=== PATIENT | female | born 2000 | race Caucasian/White ===

== ENCOUNTER 2023-08-05 23:43 | Emergency (ER) | payer BC, SELFPAY ==
--- NOTE | ~2023-08-05 | US_ITS ---
EXAMINATION: US OB <=14 wk fetus w TV DATE: 08/06/2023 01:35 INDICATION: Pelvic pain and vaginal bleeding during first trimester TECHNIQUE: Real-time pelvic transabdominal and transvaginal ultrasound was performed. COMPARISON: None. FINDINGS: The uterus measures 8.9 x 4.4 x 5.6 cm. There is an intrauterine gestational sac. No cardiac activity is identified. The crown rump length measures 3 mm, which correlates with an e stimated gestational age of 6 weeks and 0 day(s) (+/-) 4 day(s). The right ovary measures 1.6 x 3.5 x 2.2 cm. The left ovary measures 2.4 x 4 x 2.0 cm. There is brooke l vascular flow in the ovaries. There is no free fluid in the pelvis. IMPRESSION: 1. Intrauterine with an estimated gestational age of 6 weeks and 0 day(s) (+/-) 4 day(s) an d an estimated delivery date of 03/31/2024. No cardiac activity detected which may be due to ear ly . Continued follow-up is recommended. Reviewed, dictated and finalized at location F. IMPRESSION: 1. Intrauterine with an estimated gestational age of 6 weeks and 0 da y(s) (+/-) 4 day(s) and an estimated delivery date of 03/31/2024. No cardi ac activity detected which may be due to early . Continued follow-up i s recommended.
[2023-08-05 23:48] VITALS: BP 129/86; PULSE 90; RESP 18; TEMP 36.7; O2SAT 100
[2023-08-06 00:32] LABS: Basophils Absolute Auto 0.1 K/mm3 (0.0-0.1); Basophils Percent Auto 0.8 % (0.2-1.2); Eosinophils Absolute Auto 0.1 K/mm3 (0-0.3); Eosinophils Percent Auto 0.9 % (0-4.4); Hematocrit 40.3 % (37.0-47.0); Hemoglobin 13.3 g/dL (12.0-15.0); Immature Granulocyte Absolute 0.02 K/mm3 (0.00-0.031); Immature Granulocyte Percent A 0.3 % (0-0.5); Lymphocytes Absolute Auto 2.68 K/mm3 (0.9-3.2); Lymphocytes Percent Auto 36.4 % (18.3-44.2); Mean Corpuscular Hemoglobin 28.1 pg (26-34); Mean Corpuscular Volume 85.2 fl (80-100); Mean Platelet Volume 9.1 fl (7.4-10.4); Monocytes Absolute Auto 0.5 K/mm3 (0.1-0.6); Monocytes Percent Auto 6.4 % (2.6-8.5); Neutrophils Absolute Auto 4.1 K/mm3 (1.3-6.7); Neutrophils Percent Auto 55.2 % (45.5-73.1); Platelet Count Result 216 k/mm3 (150-375); Red Blood Count 4.73 M/mm3 (4.2-5.4); Red Cell Distribution Width 11.9 % (11.5-14.5); White Blood Count 7.4 K/mm3 (4.5-10.0)
[2023-08-06 00:44] LABS: Appearance Urine Clear (Clear); Bacteria Urine None Seen /hpf; Bilirubin Urine Negative (Negative); Blood Urine 3+ (Negative); Color Urine Yellow (Yellow); Glucose Urine UA Negative (Negative); Ketones Urine Negative (Negative); Leukocyte Esterase Ur Trace LEU/UL (Negative); Nitrate Urine Negative (Negative); Non Pathogenic Casts 0-2; Protein Urine Negative (Negative); RBC Urine 0-2 /hpf (0-2); Specific Grav Ur 1.013 (1.001-1.035); Squamous Epithelial Cell Urine Occasional /hpf (Few); Urobilinogen Urine 0.2 mg/dL (<2.0); WBC Urine 0-5 /hpf; pH Urine 5.5 (5.0-9.0)
[2023-08-06 00:46] LABS: Add Urine Microscopic? YES
--- NOTE | 2023-08-06 00:48 | ED.FEMALEGU ---
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 Patient notes that 4 days ago she had 3 positive home tests. she notes that over the last day she began having some abdominal cramping with passage of clots and which she believes may have been some tissue. The bleeding seems to have improved and now is a dark brown color. She continues to have some suprapubic cramping pain as well as some left adnexal pain. She denies any vaginal discharge, no urinary symptoms. She does endorse some associated lower back pain which seems to radiate down bilateral thighs. No fever, chills, light headedness. No concern for STI. She has not seen an OBGYN yet for this , has a scheduled appointment in 2 days. She believes she is O- blood type. Related Data Allergies Allergy/AdvReac Type Severity Reaction Status Date / Time No Known Allergies Allergy Verified 08/05/23 23:47 Review of Systems Review of Systems: All systems reviewed & are unremarkable except as noted in HPI and below PMFSH Social History Social History Smoking status: Never smoker Exam Narrative: GENERAL: Well-appearing, well-nourished, and in no acute distress. HEAD: Normocephalic, atraumatic. EYES: PERRLA and EOMI. ENT: Nares clear. Mucous membranes moist. NECK: Supple. CHEST: Clear to auscultation. No respiratory distress. HEART: Regular rate and rhythm. Normal peripheral pulses. ABDOMEN: Soft, nontender, nondistended. Suprapubic tenderness and tenderness in the left adnexa. No guarding. : Pelvic exam performed with Tiffany RAMOS as box coverer hand. Dark maroon/brown blood in vaginal vault, clears with ox above. No obvious tissue pre she did, os appears closed. EXTREMITIES: Normal range of motion. No edema. SKIN: Warm, dry, no rash. NEURO: No focal deficits. Alert and oriented x3. PSYCH: Normal mood and affect. Course Course Emergency Course: Chart review performed. No prior ED visits in our system. Triage vitals normal. Patient seen evaluated, nontoxic appearing, hemodynamically stable. Concern for threatened/missed versus ectopic . Will do basic lab work, type and screen, Rh factor, pelvic exam, transvaginal ultrasound. CBC normal, bHCG 4936, Urine negative for UTI, no bacteria. Blood type O negative. Will give rhogam. Awaiting US report. US shows pole with estimated age of 6 weeks, no HR seen. Discussed results with patient as this may be a threatened miscarriage. Advised pelvic rest, strict return precautions. She should keep her OBGYN appointment for Tuesday. The results of pertinent diagnostic studies and exam findings were discussed. The patient?s provisional diagnosis and plan of care were discussed with the patient and present family. The patient and/or present family expressed understanding of the diagnosis and plan. The nurse was instructed to provide written instructions and appropriate follow-up information. The patient understands their need and responsibility to obtain additional follow-up as instructed. The risks of medications administered and prescribed were discussed with the patient and family present. Vital Signs Vital signs: Vital Signs Temperature 98.0 F 08/05/23 23:48 Pulse Rate 90 08/05/23 23:48 Respiratory Rate 18 08/05/23 23:48 Blood Pressure 129/86 08/05/23 23:48 Pulse Oximetry 100 08/05/23 23:48 Oxygen Delivery Room Air 08/05/23 23:48 Temperature 97.8 F 08/06/23 03:27 Pulse Rate 79 08/06/23 05:01 Respiratory Rate 15 08/06/23 05:01 Blood Pressure 115/74 08/06/23 05:01 Pulse Oximetry 99 08/06/23 05:01 Oxygen Delivery Room Air 08/05/23 23:48 MDM - Female Genitourinary Lab Data 08/06/23 0
[2023-08-06 03:27] VITALS: BP 120/83; PULSE 86; RESP 15; TEMP 36.6; O2SAT 99
[2023-08-06] MEDS: RHO(D) IMMUNE GLOBULIN 300 MCG/2 ML SYRINGE IM (03:30)
[2023-08-06 04:37] LABS: Alanine Aminotransferase 15 U/L (6-35); Alkaline Phosphatase 53 U/L (38-126); Anion Gap 6 mmol/L (8-16); Aspartate Amino Transferase 19 U/L (14-36); Bilirubin,Total 0.6 mg/dL (0.2-1.3); Blood Urea Nitrogen 13 mg/dL (7-17); Calcium 8.5 mg/dL (8.4-10.2); Carbon Dioxide 24 mmol/L (22-30); Chloride 103 mmol/L (98-107); Estimated CRCL calculation 132 ml/min; Estimated Glomerular Filt Rate > 60; Glucose 98 mg/dL (65-110); Lipase 29 U/L (23-300); Potassium 3.6 mmol/L (3.4-5.0); Sodium 133 mmol/L (137-145)
[2023-08-06 05:01] VITALS: BP 115/74; PULSE 79; RESP 15; O2SAT 99
[2023-08-06 05:11] LABS: Trichomonas Vag PCR NOT DETECTED (NOT DETECTE)
[2023-08-06 05:35] LABS: Chlamydia trachomatis NOT DETECTED (NOT DETECTE); Neisseria gonorrhoeae PCR NOT DETECTED (NOT DETECTE)
== END 2023-08-06 05:04 | disposition home or self-care (01) ==
PROVIDERS: Physician Assistant; Emergency Provider Student in an Organized Health Care Education/Training Program
DX: O20.0 Threatened abortion (principal); Z3A.01 Less than 8 weeks gestation of pregnancy
CPT/HCPCS: 36415; 76801; 76817; 80053; 81001; 81025; 83690; 84702; 85025; 85461; 86850; 86900; 86901; 87491; 87591; 87661; 90384; 96372; 99284; J2790

== ENCOUNTER 2023-08-08 09:30 | Outpatient (CLI) | payer OTHER, BC, SELFPAY | END 2023-08-08 09:31 | disposition home or self-care (01) | PROVIDERS: Visit Provider Student in an Organized Health Care Education/Training Program | DX: O20.0 Threatened abortion (principal); Z3A.00 Weeks of gestation of pregnancy not specified | CPT/HCPCS: 36415; 84702 ==

== ENCOUNTER 2023-08-17 10:15 | Outpatient (CLI) | payer OTHER, BC, SELFPAY | END 2023-08-17 10:16 | disposition home or self-care (01) | LOC: ANHLAB 10:16 | PROVIDERS: Visit Provider Student in an Organized Health Care Education/Training Program | DX: O20.0 Threatened abortion (principal) | CPT/HCPCS: 36415; 84702 ==

== ENCOUNTER 2024-08-24 08:09 | Outpatient (CLI) | payer BC, SELFPAY ==
--- NOTE | ~2024-08-24 | XR_ITS ---
Right Knee Technique: AP, lateral, and sunrise views were obtained. Clinical History: Pain Findings: No fracture or dislocation is seen. Osseous alignment is anatomic. Joint spaces are preserv ed without degenerative or erosive change. Soft tissues are unremarkable. No joint effusion is seen. Impression: Unremarkable right knee radiographs. Reviewed, dictated and finalized at location . INSPECTOR Impression: Unremarkable right knee radiographs.
--- NOTE | ~2024-08-24 | XR_ITS ---
Left Knee Technique: AP, lateral, and sunrise views were obtained. Clinical History: Pain Findings: No fracture or dislocation is seen. Osseous alignment is anatomic. Joint spaces are preserv ed without degenerative or erosive change. Soft tissues are unremarkable. No joint effusion is seen. Impression: Unremarkable left knee radiographs. Reviewed, dictated and finalized at location . RVISOR BRINE Impression: Unremarkable left knee radiographs.
== END 2024-08-24 08:10 | disposition home or self-care (01) ==
PROVIDERS: PCP Physician Assistant; Visit Provider Physician Assistant
DX: M25.561 Pain in right knee (principal); M25.562 Pain in left knee
CPT/HCPCS: 73562

== ENCOUNTER 2025-03-04 12:33 | Outpatient (CLI) | payer BC, SELFPAY ==
--- OUTSIDE RECORDS SUMMARY | 2025-03-04 12:38 | XMS_ITS | Referral Summary ---
Author Organization [facility] Address [address] [place] [address] Phone Care Team Providers Care Microbiology Soil Scientist Name Role Phone Santo Jimenes MD Unavailable Sylvia Colbert Primary Care Pr ovider Allergies No known active allergies Medications No known medications Active Problems Problem Noted Date Diagnosed Date Abnormal laboratory test result 10/26/2024 Assessment & Plan (11/09/2024 11:17 AM CRYOGENICS REPAIRER): 24yoF presents for evaluation due to concern for scleroderma in light of labs showing an elevated Scl-70. Labs were checked in evaluation of B knee pain which she has had since 14yo. She describes primarily mechanical sounding knee pain worsened after long shifts or exercise. Denies notable morning pain or stiffness. Denies skin thickening, decreased oral aperture, Raynaud's, or dysphagia. Her exam is unremarkable without synovitis, telangiectasia, calcinosis, or sclerodactyly. Our serologic workup shows an isolated elevation in C1q, otherwise negative including the Scl70, centromere Ab, and RNA polymerase III. At this time, there is not evidence to substantiate a diagnosis of scleroderma nor any other rheumatologic diagnosis. Ally expressed understanding of the results. She is welcome to return as needed should symptoms warrant. Assessment & Plan (10/26/2024 3:39 PM CRYOGENICS REPAIRER): 24yoF presents for evaluation due to concern for scleroderma in light of labs showing an elevated Scl-70 (report unavailable). Labs were checked in evaluation of B knee pain which she has had since 14yo. She describes primarily mechanical sounding knee pain worsened after long shifts or exercise. Denies notable morning pain or stiffness. Denies skin thickening, decreased oral aperture, Raynaud's, or dysphagia. Her exam is unremarkable without synovitis, telangiectasia, calcinosis, or sclerodactyly. Discussed that based upon her history/exam would have a low suspicion for scleroderma. In order to further evaluate, will obtain the AVISE panel. Request copy of prior labs and XR from PCP. Plan for follow up in 2 weeks to review results. Chronic pain of both knees 10/26/2024 Assessment & Plan (10/26/2024 3:40 PM CRYOGENICS REPAIRER): Request XR reports. Continue with PT as planned. Social History Tobacco Use Types Packs/Day Years Used Date Smoking Tobacco: Never Assessed Comments Unknown Sex and Gender Information Value Date Recorded Sex Assigned at Not on file Legal Sex Female 5:28 AM CDT Gender Identity Not on file Sexual Orientation Not on file Last Filed Vital Signs Vital Sign Reading Time Taken Comments Blood Pressure 110/82 11/09/2024 11:06 AM CRYOGENICS REPAIRER Pulse 71 11/09/2024 11:06 AM CRYOGENICS REPAIRER Temperature - - Respiratory Rate - - Oxygen Saturation 99% 11/09/2024 11:06 AM CRYOGENICS REPAIRER Inhaled Oxygen Concentration - - Weight 65.3 kg (144 lb) 11/09/2024 11:06 AM CRYOGENICS REPAIRER Height 165.1 cm (5' 5) 11/09/2024 11:06 AM CRYOGENICS REPAIRER Body Mass Index 23.96 11/09/2024 11:06 AM CRYOGENICS REPAIRER Plan of Treatment Not on file Insurance [employer] OOS [employer] O[employer] Care Teams Microbiology Soil Scientist Relationship Specialty Start Date End Date Sylvia Colbert PA [address] [place] [address] PCP - General Physician Title I Math Tutor 09/07/24 Santo Jimenes MD [address] [place] [address] Consulting Physician Rheumatology 09/07/24
--- OUTSIDE RECORDS SUMMARY | 2025-03-04 12:38 | XMS_ITS | Data Portability ---
Author Organization [facility] Address [address] [place] [address] Assessment No assessment recorded. Plan of Treatment Reminders Order Date Submit Date Provider Last Modified By Organization Details Last Modified Time Details Appointments None recorded. Lab progesteron e, serum 2023 [facility], [address] [place] [address], [facility] [address], [address], 4 15:17:13 estradiol, serum 2023 024 [facility], [address] [place] [address], [facility] 2, [place], [address], 4 15:17:28 lh + FSH, serum 2023 024 [facility], [address] [place] [address], [facility] 2, [place], [address], 4 15:17:32 prolactin, serum 2023 024 [facility], [address] [facility], [facility] 2, [place], [address], 4 15:10:56 CMP, serum or plasma 2023 024 [facility], [address] [facility], [facility] 2, [place], [address], 4 15:17:04 CBC w/ auto diff 2023 024 [facility], [address] [place] [address], [facility], [place], [address], 4 15:17:23 ESR (erythrocyt e sedimentati on rate), blood 2023 [facility], [address] [place] [address], [facility] 2, [place], [address], 4 15:17:18 C reactive protein, QN, serum or plasma 2023 [facility], [address] [place] [address], [facility] 2, [place], [address], 4 15:17:38 MARSHA (antinuclea r antibodies) screen, serum 2023 [facility], [address] [place] [address], [facility] 2, [place], [address], 4 15:17:08 rf (rheumatoid factor) + anti-ccp abs, serum 2023 [facility], [address] [facility], [facility] 2, [place], [address], 4 15:16:45 HbA1c (hemoglobin A1c), blood 2023 [facility], [address] [place] [address], [facility] 2, [place], [address], 4 15:16:54 Referral physical therapist referral 2023 [facility], [address] [facility], [place], [address], 5 16:53:06 Procedures None recorded. Surgeries None recorded. Imaging XR, knee, 3 view 2023 [facility] (Imaging), [address], [place], [address], 4 10:44:50 Medication Orders None recorded. Patient TargetsNo targets recorded. Patient InstructionsNo instructions recorded. Reason for Referral Physical Therapist Referral for Pain of bilateral knee joints Referring Physician: Sylvia Colbert, Internal Medicine, Encounter Date: 08/23/2024 Results Created Date Observation Date Name Description Value Unit Range Abnormal Flag Note LastModifiedBy Organization Detail LastModifiedTime 08/28/20 24 08/29/2024 RHEUM ATOID ARTHR ITIS PROFI LE rheumatoid factor (rf) <10.0 IU/mL <14.0 Not Available [facility]) [address] [place], [address], 08/31/2024 14:36:18 08/28/20 24 08/29/2024 RHEUM ATOID ARTHR ITIS PROFI LE anti-ccp Ab, IgG/IgA 7 units 0-19 Negat dottie <20 Weak posit dottie 20 - 39 Moder ate posit dottie 40 - 59 Stron g posit dottie >59 Not Available [facility] ([facility]) [address] [facility], [place], [address], 08/31/2024 14:36:18 08/28/20 24 08/29/2024 ANTIN UCLEA R AB MULTI PLEX RFX 9 MARSHA direct POSITI VE negati ve abnormal Not Available [facility] ([facility]) [address] [place], [address], 08/31/2024 14:36:19 08/28/20 24 08/29/2024 ANTIN UCLEA R AB MULTI PLEX RFX 9 see below: COMMEN T Autoa ntibo dy Disea se Assoc iatio n ----- ----- ----- ----- ----- ----- ----- ----- ----- ----- ----- ----- Condi tion Frequ ency ----- ----- ----- ----- - ----- ----- ----- ----- ---- ----- ---- Antin uclea r Antib belinda, SLE, mixed conne ctive Direc t (MARSHA- D) tissu e disea ses ----- ----- ----- ----- - ----- ----- ----- ----- ---- ----- ---- dsDNA SLE 40 - 60% ----- ----- ----- ----- - ----- ----- ----- ----- ---- ----- ---- Chrom atin Drug induc ed SLE 90% SLE 48 - 97% ----- ----- ----- ----- - ----- ----- ----- ----- ---- ----- ---- SSA (Ro) SLE 25 - 35% Sjogr en's Syndr ome 40 - 70% Neona dolly Lupus 100% ----- ----- ----- ----- - ----- ----- ----- ----- ---- ----- ---- SSB (La) SLE 10% Sjogr en's Syndr ome 30% ----- ----- ----- ----- - ----- ----- ----- ----- --- ----- ---- Sm (anti -Everette h) SLE 15 - 30% ----- ----- ----- ----- - ----- ----- ----- ----- --- ----- ---- [employer] Mixed Conne ctive Tissu e Disea se 95% (U1 nRNP, SLE 30 - 50% anti- ribon ucleo prote in) Polym yosit is and/o r [place] tomyo sitis 20% ----- ----- ----- ----- - ----- ----- ----- ----- ---- ----- ---- Scl-7 0 (anti DNA Scler oderm a (diff use) 20 - 35% topoi dolly ase) Crest 13% ----- ----- ----- ----- - ----- ----- ----- ----- ---- ----- ---- Marie-1 Polym yosit is and/o r [place] tomyo sitis 20 - 40% ----- ----- ----- ----- - ----- ----- ----- ----- ---- ----- ---- Centr omere B Scler oderm a - Crest varia nt 80% Not Available [facility] ([facility]) [address] [place], [address], 08/31/2024 14:36:19 08/28/20 24 08/31/2024 ANTIN UCLEA R AB MULTI PLEX RFX 9 anti-DNA (ds) Ab qn 1 IU/mL 0-9 Negat dottie <5 Equiv ocal 5 - 9 Posit dottie >9 Not Available [facility] ([facility]) [address] [place], [address], 08/31/2024 14:36:19 08/28/20 24 08/31/2024 ANTIN UCLEA R AB MULTI PLEX RFX 9 telemarketing agent antibodies 0.2 ai 0.0-0. 9 Not Available [facility] ([facility]) [address] [place], [address], 08/31/2024 14:36:19 08/28/20 24 08/31/2024 ANTIN UCLEA R AB MULTI PLEX RFX 9 stoner antibodies <0.2 ai 0.0-0. 9 Not Available [facility] ([facility]) [address] [place], [address], 08/31/2024 14:36:19 08/28/20 24 08/31/2024 ANTIN UCLEA R AB MULTI PLEX RFX 9 antisclerode rma-70 antibodies 2.3 ai 0.0-0. 9 above high normal Not Available [facility] ([facility]) [address] [facility], [place], [address], 08/31/2024 14:36:19 08/28/20 24 08/31/2024 ANTIN UCLEA R AB MULTI PLEX RFX 9 sjogren's anti-ss-A <0.2 ai 0.0-0. 9 Not Available [facility] ([facility]) [address] [facility], [place], [address], 08/31/2024 14:36:19 08/28/20 24 08/31/2024 ANTIN UCLEA R AB MULTI PLEX RFX 9 sjogren's anti-ss-B <0.2 Not Available [facility] ([facility]) [address] [facility], [place], [address], 08/31/2024 14:36:19 08/28/20 24 08/31/2024 ANTIN UCLEA R AB MULTI PLEX RFX 9 antichromati n antibodies <0.2 Not Available [facility]) [address] [place], [address], 08/31/2024 14:36:19 08/28/20 24 08/31/2024 ANTIN UCLEA R AB MULTI PLEX RFX 9 anti-marie-1 <0.2 Not Available [facility] ([facility]) [address] [place], [address], 08/31/2024 14:36:19 08/28/20 24 08/31/2024 ANTIN UCLEA R AB MULTI PLEX RFX 9 anti-centrom ere B antibodies <0.2 Not Available [facility]) [address] [place], [address], 08/31/2024 14:36:19 08/28/20 24 08/29/2024 COMP. METAB OLIC PANEL (14) glucose 88 mg/dL 70-99 Not Available [facility] ([facility]) [address] [place], [address], 08/31/2024 14:36:19 08/28/20 24 08/29/2024 COMP. METAB OLIC PANEL (14) BUN 19 mg/dL 6-20 Not Available [facility] ([facility]) [address] [place], [address], 08/31/2024 14:36:19 08/28/20 24 08/29/2024 COMP. METAB OLIC PANEL (14) creatinine 0.69 mg/dL 0.57-1 .00 Not Available [facility] ([facility]) [address] [place], [address], 08/31/2024 14:36:19 08/28/20 24 08/29/2024 COMP. METAB OLIC PANEL (14) eGFR 125 mL/mi n/1.7 3 >59 Not Available [facility] ([facility]) [address] [place], [address], 08/31/2024 14:36:19 08/28/20 24 08/29/2024 COMP. METAB OLIC PANEL (14) BUN/creatini ne ratio 28 9-23 above high normal Not Available [facility] ([facility]) [address] [place], [address], 08/31/2024 14:36:19 08/28/20 24 08/29/2024 COMP. METAB OLIC PANEL (14) sodium 137 mmol/ L 134-14 4 Not Available [facility] ([facility]) [address] [place], [address], 08/31/2024 14:36:19 08/28/20 24 08/29/2024 COMP. METAB OLIC PANEL (14) potassium 4.6 mmol/ L 3.5-5. 2 Not Available [facility] ([facility]) [address] [facility], [place], [address], 08/31/2024 14:36:19 08/28/20 24 08/29/2024 COMP. METAB OLIC PANEL (14) chloride 102 mmol/ L 96-106 Not Available [facility] ([facility]) [address] [facility], [place], [address], 08/31/2024 14:36:19 08/28/20 24 08/29/2024 COMP. METAB OLIC PANEL (14) carbon dioxide, total 21 mmol/ L Not Available [facility] ([facility]) [address] [facility], [place], [address], 08/31/2024 14:36:19 08/28/20 24 08/29/2024 COMP. METAB OLIC PANEL (14) calcium 9.2 mg/dL 8.7-10 .2 Not Available [facility] ([facility]) [address] [facility], [place], [address], 08/31/2024 14:36:19 08/28/20 24 08/29/2024 COMP. METAB OLIC PANEL (14) protein, total 7.3 g/dL 6.0-8. 5 Not Available [facility] ([facility]) [address] [facility], [place], [address], 08/31/2024 14:36:19 08/28/20 24 08/29/2024 COMP. METAB OLIC PANEL (14) albumin 4.6 g/dL 4.0-5. 0 Not Available [facility] ([facility]) [address] [place], [address], 08/31/2024 14:36:19 08/28/20 24 08/29/2024 COMP. METAB OLIC PANEL (14) globulin, total 2.7 g/dL 1.5-4. 5 Not Available [facility] ([facility]) [address] [facility], [place], [address], 08/31/2024 14:36:19 08/28/20 24 08/29/2024 COMP. METAB OLIC PANEL (14) bilirubin, total 0.5 mg/dL 0.0-1. 2 Not Available [facility] ([facility]) [address] [place], [address], 08/31/2024 14:36:19 08/28/20 24 08/29/2024 COMP. METAB OLIC PANEL (14) alkaline phosphatase 73 IU/L 44-121 Not Available [facility]) [address] [facility], [place], [address], 08/31/2024 14:36:19 08/28/20 24 08/29/2024 COMP. METAB OLIC PANEL (14) AST (SGOT) 23 IU/L 0-40 Not Available [facility] ([facility]) [address] [facility], [place], [address], 08/31/2024 14:36:19 08/28/20 24 08/29/2024 COMP. METAB OLIC PANEL (14) ALT (SGPT) 20 IU/L 0-32 Not Available [facility] ([facility]) [address] [place], [address], 08/31/2024 14:36:19 08/28/20 24 08/29/2024 HEMOG LOBIN A1C hemoglobin A1C 5.7 % 4.8-5. 6 above high normal Predi abete s: 5.7 - 6.4 Diabe irma: >6.4 Glyce rajesh contr ol for adult s with diabe irma: <7.0 Not Available [facility] ([facility]) [address] [place], [address], 08/31/2024 14:36:19 08/28/20 24 08/29/2024 PROGE STERO NE progesterone 0.2 NG/mL Folli cular phase 0.1 - 0.9 Lutea l phase 1.8 - 23.9 Ovula tion phase 0.1 - 12.0 Pregn ant First trime ster 11.0 - 44.3 Secon d trime ster 25.4 - 83.3 Third trime ster 58.7 - 214.0 Postm enopa usal 0.0 - 0.1 Not Available [facility] ([facility]) [address] [place], [address], 08/31/2024 14:36:20 08/28/20 24 08/29/2024 PROLA CTIN prolactin 8.2 NG/mL 4.8-33 .4 Not Available [facility] ([facility]) [address] [place], [address], 08/31/2024 14:36:20 08/28/20 24 08/29/2024 ESTRA DIOL estradiol 58.7 pg/mL Adult Femal e Range Folli cular phase 12.5 - 166.0 Ovula tion phase 85.8 - 498.0 Lutea l phase 43.8 - 211.0 Postm enopa usal <6.0 - 54.7 Pregn nel 1st trime ster 215.0 - >4300 .0 Bernard ECLIA metho dolog y Not Available [facility] ([facility]) [address] [place], [address], 08/31/2024 14:36:21 08/28/20 24 08/29/2024 CBC WITH DIFFE RENTI AL/PL ATELE T WBC 4.8 x10e3 /uL 3.4-10 .8 Eff ectiv e Decem 2023 profi aurelia [address] 5 WBC will be made* * non-o rdera ble as a stand -neelam e order code. Not Available [facility] ([facility]) [address] [place], [address], 08/31/2024 14:36:21 08/28/20 24 08/29/2024 CBC WITH DIFFE RENTI AL/PL ATELE T RBC 5.53 x10e6 /uL 3.77-5 .28 above high normal Not Available [facility] ([facility]) [address] [place], [address], 08/31/2024 14:36:21 08/28/20 24 08/29/2024 CBC WITH DIFFE RENTI AL/PL ATELE T hemoglobin 14.2 g/dL 11.1-1 5.9 Not Available [facility] ([facility]) [address] [place], [address], 08/31/2024 14:36:21 08/28/20 24 08/29/2024 CBC WITH DIFFE RENTI AL/PL ATELE T hematocrit 45.0 % 34.0-4 6.6 Not Available [facility] ([facility]) [address] [place], [address], 08/31/2024 14:36:21 08/28/20 24 08/29/2024 CBC WITH DIFFE RENTI AL/PL ATELE T MCV 81 fL 79-97 Not Available [facility] ([facility]) [address] [place], [address], 08/31/2024 14:36:21 08/28/20 24 08/29/2024 CBC WITH DIFFE RENTI AL/PL ATELE T MCH 25.7 pg 26.6-3 3.0 below low normal Not Available [facility] ([facility]) [address] [place], [address], 08/31/2024 14:36:21 08/28/20 24 08/29/2024 CBC WITH DIFFE RENTI AL/PL ATELE T MCHC 31.6 g/dL 31.5-3 5.7 Not Available [facility] ([facility]) [address] [place], [address], 08/31/2024 14:36:21 08/28/20 24 08/29/2024 CBC WITH DIFFE RENTI AL/PL ATELE T RDW 14.1 % 11.7-1 5.4 Not Available [facility] ([facility]) [address] [facility], [place], [address], 08/31/2024 14:36:21 08/28/20 24 08/29/2024 CBC WITH DIFFE RENTI AL/PL ATELE T platelets 224 x10e3 /uL 150-45 0 Not Available [facility] ([facility]) [address] [facility], [place], [address], 08/31/2024 14:36:21 08/28/20 24 08/29/2024 CBC WITH DIFFE RENTI AL/PL ATELE T neutrophils 46 % notest ab. Not Available [facility] ([facility]) [address] [facility], [place], [address], 08/31/2024 14:36:21 08/28/20 24 08/29/2024 CBC WITH DIFFE RENTI AL/PL ATELE T lymphs 45 % notest ab. Not Available [facility] ([facility]) [address] [facility], [place], [address], 08/31/2024 14:36:21 08/28/20 24 08/29/2024 CBC WITH DIFFE RENTI AL/PL ATELE T monocytes 8 % notest ab. Not Available [facility] ([facility]) [address] [facility], [place], [address], 08/31/2024 14:36:21 08/28/20 24 08/29/2024 CBC WITH DIFFE RENTI AL/PL ATELE T eos 0 % notest ab. Not Available [facility] ([facility]) [address] [facility], [place], [address], 08/31/2024 14:36:21 08/28/20 24 08/29/2024 CBC WITH DIFFE RENTI AL/PL ATELE T basos 1 % notest ab. Not Available [facility] ([facility]) [address] [facility], [place], [address], 08/31/2024 14:36:21 08/28/20 24 08/29/2024 CBC WITH DIFFE RENTI AL/PL ATELE T neutrophils (absolute) 2.2 x10e3 /uL 1.4-7. 0 Not Available [facility] ([facility]) [address] [facility], [place], [address], 08/31/2024 14:36:21 08/28/20 24 08/29/2024 CBC WITH DIFFE RENTI AL/PL ATELE T lymphs (absolute) 2.2 x10e3 /uL 0.7-3. 1 Not Available [facility] ([facility]) [address] [facility], [place], [address], 08/31/2024 14:36:21 08/28/20 24 08/29/2024 CBC WITH DIFFE RENTI AL/PL ATELE T monocytes(ab solute) 0.4 x10e3 /uL 0.1-0. 9 Not Available [facility] ([facility]) [address] [place], [address], 08/31/2024 14:36:21 08/28/20 24 08/29/2024 CBC WITH DIFFE RENTI AL/PL ATELE T eos (absolute) 0.0 x10e3 /uL 0.0-0. 4 Not Available [facility] ([facility]) [address] [place], [address], 08/31/2024 14:36:21 08/28/20 24 08/29/2024 CBC WITH DIFFE RENTI AL/PL ATELE T baso (absolute) 0.0 x10e3 /uL 0.0-0. 2 Not Available [facility] ([facility]) [address] [place], [address], 08/31/2024 14:36:21 08/28/20 24 08/29/2024 CBC WITH DIFFE RENTI AL/PL ATELE T immature granulocytes 0 % notest ab. Not Available [facility] ([facility]) [address] [place], [address], 08/31/2024 14:36:21 08/28/20 24 08/29/2024 CBC WITH DIFFE RENTI AL/PL ATELE T immature grans (abs) 0.0 x10e3 /uL 0.0-0. 1 Not Available [facility] ([facility]) [address] [place], [address], 08/31/2024 14:36:21 08/28/20 24 08/29/2024 SEDIM ENTAT ION RATE- WESTE RGREN sedimentatio n rate-westerg jean claude 11 mm/HR 0-32 Not Available [facility]) [address] [place], [address], 08/31/2024 14:36:21 08/28/20 24 08/29/2024 C-CRISTY CTIVE PROTE IN, QUANT C-reactive protein, quant <1 mg/L 0-10 Not Available [facility] ([facility]) [address] [place], [address], 08/31/2024 14:36:22 08/28/20 24 08/29/2024 FSH AND LH LH 16.5 mIU/m L Adult Femal e Range Folli cular phase 2.4 - 12.6 Ovula tion phase 14.0 - 95.6 Lutea l phase 1.0 - 11.4 Postm enopa usal 7.7 - 58.5 Not Available [facility] ([facility]) [address] [place], [address], 08/31/2024 14:36:22 08/28/20 24 08/29/2024 FSH AND LH FSH 7.0 mIU/m L Adult Femal e Range Folli cular phase 3.5 - 12.5 Ovula tion phase 4.7 - 21.5 Lutea l phase 1.7 - 7.7 Postm enopa usal 25.8 - 134.8 Not Available [facility] ([facility]) [address], [place], [address], 08/31/2024 14:36:22 08/24/20 24 08/24/2024 XR, knee, 3 view No observ ation record ed. [facility] [address], [place], [address], 08/24/2024 19:05:33 Result Notes None recorded. Problems Name Problem SNOMED Code Status Onset Date Resolution Date Notes Provider Name and Address Organization Details Recorded Time Pain of bilateral knee joints 44195120153970 4 Active 2023 CARMELO Dawson Attn: Amanbillie motley,[address] [place], [address] 4 19:33:59 Long-term drug therapy Active 2023 CARMELO Dawson Attn: Lacey g,[address] [facility], [place], [address], [facility] 4 19:34:37 Pain of multiple joints 92075786 Active 2023 CARMELO Dawson Attn: Amanbillie g,[address] [place], [address], [facility] 4 19:34:46 Problem Notes None recorded. Medical Equipment None Reported. Allergies No known drug allergies Medications Not known to be on any medication Vitals Date Recorded Body height Body temperature Heart rate Oxygen saturation Oxygen saturation in Arterial blood by Pulse oximetry Body weight Systolic blood pressure Diastolic blood pressure Provider Name and Address Organization Details Last Updated DateTime 4 165.1 cm 98.7 [degF] 78 /min 99 % 99 % 47914.6 7 g 126 mm[Hg] 78 mm[Hg] Alie Jay LPN [place] [facility] 4 11:33:43 Social History Question Answer Notes LastModified by Organizat ion Details LastModified Time Tobacco Smoking Status Never Smoker Alie Jay LPN null, [place] [facility] 08/23/2024 11:37:31 Do You Have An Advance Directive? No Information n ot available 08/23/2024 Are You Blind Or Do You Have Difficulty Seeing? No Information n ot available 08/23/2024 What Is Your Level Of Caffeine Consumption? Occasional Information not available 08/23/2024 In The 14 Days Before Symptom Onset, Have You Had Close Contact With A Laboratory-confirm ed COVID-19 While That Case Was Ill? Yes Information n ot available 08/23/2024 In The 14 Days Before Symptom Onset, Have You Had Close Contact With A Person Who Is Under Investigation For COVID-19 While That Person Was Ill? No Information not available 08/23/2024 Have You Been To An Area Known To Be High Risk For COVID-19? Yes Information not available 08/23/2024 Are You Deaf Or Do You Have Serious Difficulty Hearing? No Information not available 08/23/2024 What Type Of Diet Are You Following? REGULAR Information n ot available 08/23/2024 What Is The Highest Grade Or Level Of School You Have Completed Or The Highest Degree You Have Received? [id number] Information not available 08/23/2024 Are There Any Guns Present In Your Home? Yes Information not available 08/23/2024 What Is Your Relationship Status? Information not available 08/23/2024 Do You Use Your Seat Belt Or Car Seat Routinely? Yes Information not available 08/23/2024 Do You Have Smoke And Carbon Monoxide Detectors In Your Home? Yes Information not available 08/23/2024 Do You Use Sunscreen Routinely? Yes Information not available 08/23/2024 Has Tobacco Cessation Counseling Been Provided? No Information not available 08/23/2024 Sex: Female Functional Status Question Answer Note LastModified by Organizat ion Details LastModified Time Do you use any illicit or recreational drugs? No Information not available 08/23/2024 Do you or have you ever used any other forms of tobacco or nicotine? No Information not available 08/23/2024 What is your level of alcohol consumption? None Information not available 08/23/2024 Are you currently employed? Yes Information not available 08/23/2024 Are you able to care for yourself? Yes Information n ot available 08/23/2024 What is your exercise level? Moderate Information not available 08/23/2024 Mental Status Question Answer Note LastModified by Organization D etails LastModified Time Do you feel stressed (tense, restless, nervous, or anxious, or unable to sleep at night)? [id number] Information not available 08/23/2024 Family History Relationship Description Onset Age of this Age Resolved Age Notes LastModified by Organization Details LastModified Time Mother Hypercholest erolemia 47 [email or web address] Not available 2023 11:36:33 Father Autoimmune disease 53 [email or web address] Not available 2023 11:36:57 Medical History Condition Response Coronary Artery Disease N Other N High Blood Pressure N Atrial Fibrillation N Kidney or Bladder Problems N Thyroid Problems N Depression N COPD N Blood Clots N GI Problems N Have you had a mammogram in the last yea r? N Skin Problems Y Anemia N Heart Attack (PR) N Anxiety Disorder N Diabetes N Muscle, Joint, or Bone Problems Y Seizures/Epilepsy N Have you had a colonoscopy in the last 1 0 years? N Acid Reflux (GERD) N Cancer N Asthma N Allergies N Have you had a PSA blood test in the las t year? N High Cholesterol N Hepatitis N Liver Disease N Headaches N Heart Failure N Osteoporosis N Gynecological History Statement/Question Response Frequency of Cycle (Q days) 45 Date of LMP 07/07/2024 Menses Monthly Y Duration of Flow (days) 3 Age at Menarche 13 Current Control Method None Obstetrics History GPAL:G 1 P 0 0 0 0 Type Value Multiple Births 0 Full Term 0 Induced 0 Spontaneous 0 Premature 0 Living 0 Ectopics 0 Total 1 Past Encounters Encounter ID Performer Location Encounter Start Date Encounter Closed Date Diagnosis/Indication Diagnosis SNOMED-CT Code Diagnosis ICD10 Code Diagnosis Note [id number] Michael Yeung MD [facility] - [facility] [address] [place] [address] 08/23/2024 11:00:58 08/23/2024 12:08:23 Pain of bilateral knee joints 3221585961 49704 M25.561 M25.562 check baseline x-ray of the knees bilaterall y and refer to physical therapy for modalities as needed Pain of mu ltiple joints 71856526 M25.50 For generalize d multiple joint pain that waxes and wanes and various locations we will check baseline sed rate, C-reactive protein, MARSHA multiplex panel as well as a rheumatoid arthritis profile Hormone abnormality 8445 2003 R89.1 Patient would like to have her hormones checked per request Long-term drug therapy [id number] Z79.891 Routine CBC and CMP labs ordered Diabetes m ellitus screening 356707254 Z13.1 Diabetes screening ordered Health Concerns Section Related Observation LastModified by Organization Detai ls LastModified Time None Recorded Concern Status LastModified by Organization Details LastModified Time None Recorded Advance Directives Directive N: Payers Encounter Date Sequence Insurance Name Policy Number Policy Koroma Covered Member ID Koroma Member ID Guarantor Name 08/23/2024 1 [employer] ([place]) [id number] Ally Peter [id number] Ally Peter Notes Date Note Type Note Provider Name and Address Organization Details Recorded Time 08/23/2024 text/html KneeReported bypatient.Location :bilateral Quality:aching; dull; deep; frequent; constant; worsening Severity:moderate Duration:years Timing:chronic Context:cannot identify Alleviating Factors:nothing helps Aggravating Factors:standing; twisting; bending/squatting; ROM; exercise; going from sit to stand; upstairs; downstairs Associated Symptoms:no weakness; no numbness; no tingling; no swelling; no redness; no warmth; no ecchymosis; no catching/locking; no popping/clicking; no buckling; no grinding; no instability; no radiation down leg Previous Surgery:none Prior Imaging:none Previous Injections:none Previous PT:none Work Related:no Working:regular duty CARMELO Dawson Attn: Accounting[address] [place], [address], [place] [facility] 09/02/2024 19:35:00 OBGyn Episode No OBEpisode recorded.
--- OUTSIDE RECORDS SUMMARY | 2025-03-04 12:38 | XMS_ITS | Clinical Summary ---
Author Organization [facility] Address [address] [place] [address] Phone Care Team Providers Care Log Yard Manager Name Role Phone Santo Jimenes MD Unavailable [phone] Sylvia Colbert Primary Care Pr ovider Allergies No known active allergies Medications No known medications Active Problems Problem Noted Date Diagnosed Date Abnormal laboratory test result 10/26/2024 Assessment & Plan (11/09/2024 11:17 AM SENIOR SOFTWARE MANAGER): 24yoF presents for evaluation due to concern [...] warrant. Assessment & Plan (10/26/2024 3:39 PM SENIOR SOFTWARE MANAGER): 24yoF presents for evaluation due to concern [...] 10/26/2024 Assessment & Plan (10/26/2024 3:40 PM SENIOR SOFTWARE MANAGER): Request XR reports. Continue with PT as planned. Social History Tobacco Use Types Packs/Day Years Used Date Smoking Tobacco: Never Assessed Comments Unknown Sex and Gender Information Value Date Recorded Sex Assigned at Not on file Legal Sex Female 5:28 AM CDT Gender Identity Not on file Sexual Orientation Not on file Obstetrics History Last Filed Vital Signs Vital Sign Reading Time Taken Comments Blood Pressure 110/82 11/09/2024 11:06 AM SENIOR SOFTWARE MANAGER Pulse 71 11/09/2024 11:06 AM SENIOR SOFTWARE MANAGER Temperature - - Respiratory Rate - - Oxygen Saturation 99% 11/09/2024 11:06 AM SENIOR SOFTWARE MANAGER Inhaled Oxygen Concentration - - Weight 65.3 kg (144 lb) 11/09/2024 11:06 AM SENIOR SOFTWARE MANAGER Height 165.1 cm (5' 5) 11/09/2024 11:06 AM SENIOR SOFTWARE MANAGER Body Mass Index 23.96 11/09/2024 11:06 AM SENIOR SOFTWARE MANAGER Plan of Treatment Health Maintenance Due Date Last Done Comments Cervical Cancer Screening 2000 Depression Screening 2000 Hepatitis C Screening 2000 DTaP/Tdap/Td Vaccine (1 - Tdap) 2011 Varicella Vaccines (1 of 2 - 13+ 2-dose series) 2013 HPV Vaccines (1 - 3-dose series) 2015 Hepatitis B Screening 2018 Regular Well Visit/Exam 18-64 2018 Influenza Vaccine (Season Ended) 2025 Pneumococcal vaccine <65 Aged Out No longer eligible based on patient's age to complete this topic Insurance Stop Being Watched OOS Stop Being Watched OOS Care Teams Log Yard Manager Relationship Specialty Start Date End Date Sylvia Colbert PA [address] [place] [address] PCP - General Physician [employer] Consultant 09/07/24 Santo Jimenes MD [address] [place] [address] Consulting Physician Rheumatology 09/07/24
== END 2025-03-04 12:34 | disposition home or self-care (01) ==
LOC: ANHLAB 12:35
PROVIDERS: PCP Physician Assistant; Visit Provider Obstetrics & Gynecology
DX: N91.2 Amenorrhea, unspecified (principal)
CPT/HCPCS: 36415; 84702

== ENCOUNTER 2025-04-11 10:59 | Outpatient (CLI) | payer BC, SELFPAY ==
--- OUTSIDE RECORDS SUMMARY | 2025-04-11 11:06 | XMS_ITS | Data Portability ---
[facility] Organization [facility] Address [address] [place] [address] Assessment No assessment recorded. Plan of Treatment Reminders Order Date Submit Date Provider Last Modified By Organization Details Last Modified Time Details Appointments None recorded. Lab progesteron e, serum 2023 024 [facility], [address] [facility], [facility] [address], [address], 4 15:17:13 estradiol, serum 2023 024 [facility], [address] [facility], [facility] [address], [address], 4 15:17:28 lh + FSH, serum 2023 024 [facility], [address] [facility], [facility] 2, [place], [address], 4 15:17:32 prolactin, serum 2023 024 [facility], [address] [facility] [address], [place], [address], 4 15:10:56 CMP, serum or plasma 2023 024 [facility], [address] [facility], [address], [place], [address], 4 15:17:04 CBC w/ auto diff 2023 024 [facility], [address] [place], [facility] 2, [place], [address], 4 15:17:23 ESR (erythrocyt e sedimentati on rate), blood 2023 024 [facility], [address] [facility], [facility] 2, [place], [address], 4 15:17:18 C reactive protein, QN, serum or plasma 2023 [facility], [address] [facility], [facility] [address], [place], [address], 4 15:17:38 MARSHA (antinuclea r antibodies) screen, serum 2023 [facility], [address] [place] [address], [facility] 2, [place], [address], 4 15:17:08 rf (rheumatoid factor) + anti-ccp abs, serum 2023 024 [facility], [address] [place] [address], [facility] [address], [place], [address], 4 15:16:45 HbA1c (hemoglobin A1c), blood 2023 [facility], [address] [place] [address], [facility] [address], [place], [address], 4 15:16:54 Referral physical therapist referral 2023 [facility], [address] [facility], [place], [address], 5 16:53:06 Procedures None recorded. Surgeries None recorded. Imaging XR, knee, 3 view 2023 [facility] (Imaging), [address], [place], [address], 4 10:44:50 Medication Orders None recorded. Patient [...] <10.0 IU/mL <14.0 Not Available [facility] ([facility]) [address] [facility], [place], [address], 08/31/2024 14:36:18 08/28/2008/29/2024 RHEUM ATOID ARTHR ITIS PROFI LE anti-ccp Ab, IgG/IgA 7 units 0-19 Negat dottie <20 Weak posit dottie 20 - 39 Moder ate posit dottie 40 - 59 Stron g posit dottie >59 Not Available [facility] ([facility]) [address] [facility], [place], [address], 08/31/2024 14:36:18 08/28/20 24 08/29/2024 ANTIN UCLEA R AB MULTI PLEX RFX 9 MARSHA direct POSITI VE negati ve abnormal Not Available [facility] ([facility]) [address] [facility], [place], [address], 08/31/2024 14:36:19 08/28/2008/29/2024 ANTIN UCLEA R AB MULTI PLEX RFX [...] ----- ----- ----- ----- --- ----- ---- PRECISION LENS POLISHER Mixed Conne ctive Tissu e Disea se 95% (U1 nRNP, SLE 30 - 50% anti- ribon ucleo prote in) Polym yosit is and/o r Okay tomyo sitis 20% ----- ----- ----- ----- - ----- ----- ----- ----- ---- ----- ---- Scl-7 0 (anti DNA Scler oderm a (diff use) 20 - 35% topoi dolly ase) Crest 13% ----- ----- ----- ----- - ----- ----- ----- ----- ---- ----- ---- Marie-1 Polym yosit is and/o r Okay tomyo sitis 20 - 40% ----- ----- ----- ----- - ----- ----- ----- ----- ---- ----- ---- Centr omere B Scler oderm a - Crest varia nt 80% Not Available [facility] ([facility]) [address] [place], [address], 08/31/2024 14:36:19 08/28/2008/31/2024 ANTIN UCLEA R AB MULTI PLEX RFX 9 anti-DNA (ds) Ab qn 1 IU/mL 0-9 Negat dottie <5 Equiv ocal 5 - 9 Posit dottie >9 Not Available [facility] ([facility]) [address] [place], [address], 08/31/2024 14:36:19 08/28/2008/31/2024 ANTIN UCLEA R AB MULTI PLEX RFX 9 scrub nurse antibodies 0.2 ai 0.0-0. 9 Not Available [facility] ([facility]) [address] [place], [address], 08/31/2024 14:36:19 08/28/2008/31/2024 ANTIN UCLEA R AB MULTI PLEX RFX 9 stoner antibodies <0.2 ai 0.0-0. 9 Not Available [facility] ([facility]) [address] [place], [address], 08/31/2024 14:36:19 08/28/20 24 08/31/2024 ANTIN UCLEA R AB MULTI PLEX RFX 9 antisclerode rma-70 antibodies 2.3 ai 0.0-0. 9 above high normal Not Available [facility] ([facility]) [address] [facility], [place], [address], 08/31/2024 14:36:19 08/28/20 24 08/31/2024 ANTIN UCLEA R AB MULTI PLEX RFX 9 sjogren's anti-ss-A <0.2 ai 0.0-0. 9 Not Available [facility] ([facility]) [address] [facility], [place], [address], 08/31/2024 14:36:19 08/28/20 24 08/31/2024 ANTIN UCLEA R AB MULTI PLEX RFX 9 sjogren's anti-ss-B <0.2 Not Available [facility] ([facility]) [address] [facility], [place], [address], 08/31/2024 14:36:19 08/28/20 24 08/31/2024 ANTIN UCLEA R AB MULTI PLEX RFX 9 antichromati n antibodies <0.2 Not Available [facility] ([facility]) [address] [place], [address], 08/31/2024 14:36:19 08/28/20 24 08/31/2024 ANTIN UCLEA R AB MULTI PLEX RFX 9 anti-marie-1 <0.2 Not Available [facility] ([facility]) [address] [place], [address], 08/31/2024 14:36:19 08/28/20 24 08/31/2024 ANTIN UCLEA R AB MULTI PLEX RFX 9 anti-centrom ere B antibodies <0.2 Not Available [facility] ([facility]) [address] [place], [address], 08/31/2024 14:36:19 08/28/20 24 08/29/2024 COMP. METAB OLIC PANEL (14) glucose 88 mg/dL 70-99 Not Available [facility] ([facility]) [address] [place], [address], 08/31/2024 14:36:19 08/28/20 24 08/29/2024 COMP. METAB OLIC PANEL (14) BUN 19 mg/dL 6-20 Not Available [facility] ([facility]) [address] [place], [address], 08/31/2024 14:36:19 08/28/20 24 08/29/2024 COMP. METAB OLIC PANEL (14) creatinine 0.69 mg/dL 0.57-1 .00 Not Available [facility] ([facility]) [address] [place], [address], 08/31/2024 14:36:19 08/28/20 24 08/29/2024 COMP. METAB OLIC PANEL (14) eGFR 125 mL/mi n/1.7 3 >59 Not Available [facility] ([facility]) [address] [place], [address], 08/31/2024 14:36:19 08/28/20 24 08/29/2024 COMP. METAB OLIC PANEL (14) BUN/creatini ne ratio 28 9-23 above high normal Not Available [facility] ([facility]) [address] [place], [address], 08/31/2024 14:36:19 08/28/20 24 08/29/2024 COMP. METAB OLIC PANEL (14) sodium 137 mmol/ L 134-14 4 Not Available [facility] ([facility]) [address] [place], [address], 08/31/2024 14:36:19 08/28/20 24 08/29/2024 COMP. METAB OLIC PANEL (14) potassium 4.6 mmol/ L 3.5-5. 2 Not Available [facility] ([facility]) [address] [facility] [place], [address], 08/31/2024 14:36:19 08/28/20 24 08/29/2024 COMP. METAB OLIC PANEL (14) chloride 102 mmol/ L 96-106 Not Available [facility] ([facility]) [address] [facility] [place], [address], 08/31/2024 14:36:19 08/28/20 24 08/29/2024 COMP. METAB OLIC PANEL (14) carbon dioxide, total 21 mmol/ L Not Available [facility] ([facility]) [address] [facility] [place], [address], 08/31/2024 14:36:19 08/28/20 24 08/29/2024 COMP. METAB OLIC PANEL (14) calcium 9.2 mg/dL 8.7-10 .2 Not Available [facility] ([facility]) [address] [place], [address], 08/31/2024 14:36:19 08/28/20 24 08/29/2024 COMP. METAB OLIC PANEL (14) protein, total 7.3 g/dL 6.0-8. 5 Not Available [facility] ([facility]) [address] [place], [address], 08/31/2024 14:36:19 08/28/20 24 08/29/2024 COMP. METAB OLIC PANEL (14) albumin 4.6 g/dL 4.0-5. 0 Not Available [facility] ([facility]) [address] [place], [address], 08/31/2024 14:36:19 08/28/20 24 08/29/2024 COMP. METAB OLIC PANEL (14) globulin, total 2.7 g/dL 1.5-4. 5 Not Available [facility] ([facility]) [address] [place], [address], 08/31/2024 14:36:19 08/28/20 24 08/29/2024 COMP. METAB OLIC PANEL (14) bilirubin, total 0.5 mg/dL 0.0-1. 2 Not Available [facility] ([facility]) [address] [place], [address], 08/31/2024 14:36:19 08/28/20 24 08/29/2024 COMP. METAB OLIC PANEL (14) alkaline phosphatase 73 IU/L 44-121 Not Available [facility] ([facility]) [address] [place], [address], 08/31/2024 14:36:19 08/28/20 24 08/29/2024 COMP. METAB OLIC PANEL (14) AST (SGOT) 23 IU/L 0-40 Not Available [facility] ([facility]) [address] [place], [address], 08/31/2024 14:36:19 08/28/20 24 08/29/2024 COMP. METAB OLIC PANEL (14) ALT (SGPT) 20 IU/L 0-32 Not Available [facility] ([facility]) [address] [place], [address], 08/31/2024 14:36:19 08/28/20 24 08/29/2024 HEMOG LOBIN A1C hemoglobin A1C 5.7 % 4.8-5. 6 above high normal Predi abete s: 5.7 - 6.4 Diabe irma: >6.4 Glyce rajesh contr ol for adult s with diabe irma: <7.0 Not Available [facility] ([facility]) [address] [place], [address], 08/31/2024 14:36:19 08/28/20 24 08/29/2024 PROGE STERO NE progesterone 0.2 NG/mL Folli cular phase 0.1 - 0.9 Lutea l phase 1.8 - 23.9 Ovula tion phase 0.1 - 12.0 Pregn ant First trime ster 11.0 - 44.3 Secon d trime ster 25.4 - 83.3 Third trime ster 58.7 - 214.0 Postm enopa usal 0.0 - 0.1 Not Available [facility] ([facility]) [address] [place], [address], 08/31/2024 14:36:20 08/28/20 24 08/29/2024 PROLA CTIN prolactin 8.2 NG/mL 4.8-33 .4 Not Available [facility] ([facility]) [address] [place], [address], 08/31/2024 14:36:20 08/28/20 24 08/29/2024 ESTRA DIOL estradiol 58.7 pg/mL Adult Femal e Range Folli cular phase 12.5 - 166.0 Ovula tion phase 85.8 - 498.0 Lutea l phase 43.8 - 211.0 Postm enopa usal <6.0 - 54.7 Pregn nel 1st trime ster 215.0 - >4300 .0 Bernard ECLIA metho dolog y Not Available [facility] ([facility]) [address] [place], [address], 08/31/2024 14:36:21 08/28/20 24 08/29/2024 CBC WITH DIFFE RENTI AL/PL ATELE T WBC 4.8 x10e3 /uL 3.4-10 .8 Eff ectiv e Decem 2023 profi aurelia [id number] 5 WBC will be made* * non-o rdera ble as a stand -neelam e order code. Not Available [facility] ([facility]) [address] [place], [address], 08/31/2024 14:36:21 08/28/20 24 08/29/2024 CBC WITH DIFFE RENTI AL/PL ATELE T RBC 5.53 x10e6 /uL 3.77-5 .28 above high normal Not Available [facility] ([facility]) [address] [facility], [place], [address], 08/31/2024 14:36:21 08/28/20 24 08/29/2024 CBC WITH DIFFE RENTI AL/PL ATELE T hemoglobin 14.2 g/dL 11.1-1 5.9 Not Available [facility] ([facility]) [address] [facility], [place], [address], 08/31/2024 14:36:21 08/28/20 24 08/29/2024 CBC WITH DIFFE RENTI AL/PL ATELE T hematocrit 45.0 % 34.0-4 6.6 Not Available [facility] ([facility]) [address] [place], [address], 08/31/2024 14:36:21 08/28/20 24 08/29/2024 CBC WITH DIFFE RENTI AL/PL ATELE T MCV 81 fL 79-97 Not Available [facility] ([facility]) [address] [place], [address], 08/31/2024 14:36:21 08/28/20 24 08/29/2024 CBC WITH DIFFE RENTI AL/PL ATELE T MCH 25.7 pg 26.6-3 3.0 below low normal Not Available [facility] ([facility]) [address] [place], [address], 08/31/2024 14:36:21 08/28/20 24 08/29/2024 CBC WITH DIFFE RENTI AL/PL ATELE T MCHC 31.6 g/dL 31.5-3 5.7 Not Available [facility] ([facility]) [address] [place], [address], 08/31/2024 14:36:21 08/28/20 24 08/29/2024 CBC WITH DIFFE RENTI AL/PL ATELE T RDW 14.1 % 11.7-1 5.4 Not Available [facility] ([facility]) [address] [facility], [place], [address], 08/31/2024 14:36:21 08/28/20 24 08/29/2024 CBC WITH DIFFE RENTI AL/PL ATELE T platelets 224 x10e3 /uL 150-45 0 Not Available [facility] ([facility]) [address] [facility], [place], [address], 08/31/2024 14:36:21 08/28/20 24 08/29/2024 CBC WITH DIFFE RENTI AL/PL ATELE T neutrophils 46 % notest ab. Not Available [facility] ([facility]) [address] [facility], [place], [address], 08/31/2024 14:36:21 08/28/20 24 08/29/2024 CBC WITH DIFFE RENTI AL/PL ATELE T lymphs 45 % notest ab. Not Available [facility] ([facility]) [address] [facility], [place], [address], 08/31/2024 14:36:21 08/28/20 24 08/29/2024 CBC WITH DIFFE RENTI AL/PL ATELE T monocytes 8 % notest ab. Not Available [facility] ([facility]) [address] [facility], [place], [address], 08/31/2024 14:36:21 08/28/20 24 08/29/2024 CBC WITH DIFFE RENTI AL/PL ATELE T eos 0 % notest ab. Not Available [facility] ([facility]) [address] [facility], [place], [address], 08/31/2024 14:36:21 08/28/20 24 08/29/2024 CBC WITH DIFFE RENTI AL/PL ATELE T basos 1 % notest ab. Not Available [facility] ([facility]) [address] [facility], [place], [address], 08/31/2024 14:36:21 08/28/20 24 08/29/2024 CBC WITH DIFFE RENTI AL/PL ATELE T neutrophils (absolute) 2.2 x10e3 /uL 1.4-7. 0 Not Available [facility] ([facility]) [address] [facility], [place], [address], 08/31/2024 14:36:21 08/28/20 24 08/29/2024 CBC WITH DIFFE RENTI AL/PL ATELE T lymphs (absolute) 2.2 x10e3 /uL 0.7-3. 1 Not Available [facility] ([facility]) [address] [facility], [place], [address], 08/31/2024 14:36:21 08/28/20 24 08/29/2024 CBC WITH DIFFE RENTI AL/PL ATELE T monocytes(ab solute) 0.4 x10e3 /uL 0.1-0. 9 Not Available [facility] ([facility]) [address] [facility], [place], [address], 08/31/2024 14:36:21 08/28/20 24 08/29/2024 CBC WITH DIFFE RENTI AL/PL ATELE T eos (absolute) 0.0 x10e3 /uL 0.0-0. 4 Not Available [facility] ([facility]) [address] [place], [address], 08/31/2024 14:36:21 08/28/20 24 08/29/2024 CBC WITH DIFFE RENTI AL/PL ATELE T baso (absolute) 0.0 x10e3 /uL 0.0-0. 2 Not Available [facility] ([facility]) [address] [place], [address], 08/31/2024 14:36:21 08/28/20 24 08/29/2024 CBC WITH DIFFE RENTI AL/PL ATELE T immature granulocytes 0 % notest ab. Not Available [facility] ([facility]) [address] [place], [address], 08/31/2024 14:36:21 08/28/20 24 08/29/2024 CBC WITH DIFFE RENTI AL/PL ATELE T immature grans (abs) 0.0 x10e3 /uL 0.0-0. 1 Not Available [facility] ([facility]) [address] [facility], [place], [address], 08/31/2024 14:36:21 08/28/20 24 08/29/2024 SEDIM ENTAT ION RATE- WESTE RGREN sedimentatio n rate-westerg jean claude 11 mm/HR 0-32 Not Available [facility] ([facility]) [address] [place], [address], 08/31/2024 14:36:21 08/28/20 24 08/29/2024 C-CRISTY CTIVE PROTE IN, QUANT C-reactive protein, quant <1 mg/L 0-10 Not Available [facility] ([facility]) [address] [place], [address], 08/31/2024 14:36:22 08/28/20 24 08/29/2024 FSH AND LH LH 16.5 mIU/m L Adult Femal e Range Folli cular phase 2.4 - 12.6 Ovula tion phase 14.0 - 95.6 Lutea l phase 1.0 - 11.4 Postm enopa usal 7.7 - 58.5 Not Available [facility] ([facility]) [address] [place], [address], 08/31/2024 14:36:22 08/28/20 24 08/29/2024 FSH AND LH FSH 7.0 mIU/m L Adult Femal e Range Folli cular phase 3.5 - 12.5 Ovula tion phase 4.7 - 21.5 Lutea l phase 1.7 - 7.7 Postm enopa usal 25.8 - 134.8 Not Available [facility] ([facility]) [address], [place], [address], 08/31/2024 14:36:22 08/24/20 24 08/24/2024 XR, knee, 3 view No observ ation record ed. [facility] [address], [place], [address], 08/24/2024 19:05:33 Result Notes None recorded. Problems Name Problem SNOMED Code Status Onset Date Resolution Date Notes Provider Name and Address Organization Details Recorded Time Pain of bilateral knee joints [id number] 4 Active 2023 CARMELO Dawson Attn: Lacey g,[address] [place], [address], [facility] 4 19:33:59 Long-term drug therapy Active 2023 CARMELO Dawson Attn: Accountin g,[address] [place], [address], [facility] 4 19:34:37 Pain of multiple joints 09619870 Active 2023 CARMELO Dawson Attn: Accountin g[address] [place], [address], [facility] 4 19:34:46 Problem Notes None recorded. Medical Equipment None Reported. Allergies No known drug allergies Medications Not known to be on any medication Vitals Date Recorded Body height Body temperature Heart rate Oxygen saturation Oxygen saturation in Arterial blood by Pulse oximetry Body weight Systolic And Diastolic Provider Name and Address Organization Details Last Updated DateTime 4 165.1 cm 98.7 [degF] 78 /min 99 % 99 % 81746.6 7 g 126/78 mm[Hg] Alie Jay LPN [facility] 4 11:33:43 Social History Question Answer [...] Or The Highest Degree You Have Received? [id number] Information not available 08/23/2024 Are There Any [...] anxious, or unable to sleep at night)? [id number] Information not available 08/23/2024 Family History Relationship [...] Skin Problems Y Anemia N Heart Attack ([place]) N Anxiety Disorder N Diabetes N Muscle, [...] SNOMED-CT Code Diagnosis ICD10 Code Diagnosis Note [id number] Michael Yeung MD [facility] - Cong Marte [address] [place] [address] 08/23/2024 11:00:58 08/23/2024 12:08:23 Pain of bilateral knee joints [id number] 88376 M25.561 M25.562 check baseline x-ray of the knees bilaterall y and refer to physical therapy for modalities as needed Pain of mu ltiple joints 46192835 M25.50 For generalize d multiple joint pain that waxes and wanes and various locations we will check baseline sed rate, C-reactive protein, MARSHA multiplex panel as well as a rheumatoid arthritis profile Hormone abnormality 8445 2003 R89.1 Patient would like to have her hormones checked per request Long-term drug therapy [id number] Z79.891 Routine CBC and CMP labs ordered Diabetes m ellitus screening [id number] Z13.1 Diabetes screening ordered Health Concerns Section Related Observation LastModified by Organization Detai ls LastModified Time None Recorded Concern Status LastModified by Organization Details LastModified Time None Recorded Advance Directives Directive N: Payers Insurance Date Sequence Insurance Name Policy Number Policy Koroma Covered Member ID Koroma Member ID Guarantor Name 09/04/2024 1 [facility] (O) [id number] Ally Peter [id number] Ally Peter Notes Date Note Type Note [...] Working:regular duty CARMELO Dawson Attn: Accounting[address] [place], [address], [place] [facility] 09/02/2024 19:35:00 OBGyn Episode No OBEpisode recorded.
--- OUTSIDE RECORDS SUMMARY | 2025-04-11 11:06 | XMS_ITS | Referral Summary ---
Author Organization [facility] Address [address] [place] [address] Phone Care Team Providers Care Band Splicer Name Role Phone Santo Jimenes MD Unavailable [phone] Sylvia Colbert Primary Care Pr ovider Allergies No known active allergies Medications No known medications Active Problems Problem Noted Date Diagnosed Date Abnormal laboratory test result 10/26/2024 Assessment & Plan (11/09/2024 11:17 AM IMPORT/EXPORT AGENT): 24yoF presents for evaluation due to concern [...] warrant. Assessment & Plan (10/26/2024 3:39 PM IMPORT/EXPORT AGENT): 24yoF presents for evaluation due to concern [...] 10/26/2024 Assessment & Plan (10/26/2024 3:40 PM IMPORT/EXPORT AGENT): Request XR reports. Continue with PT as [...] Comments Blood Pressure 110/82 11/09/2024 11:06 AM IMPORT/EXPORT AGENT Pulse 71 11/09/2024 11:06 AM IMPORT/EXPORT AGENT Temperature - - Respiratory Rate - - Oxygen Saturation 99% 11/09/2024 11:06 AM IMPORT/EXPORT AGENT Inhaled Oxygen Concentration - - Weight 65.3 kg (144 lb) 11/09/2024 11:06 AM IMPORT/EXPORT AGENT Height 165.1 cm (5' 5) 11/09/2024 11:06 AM IMPORT/EXPORT AGENT Body Mass Index 23.96 11/09/2024 11:06 AM IMPORT/EXPORT AGENT Plan of Treatment Not on file Insurance [email or web address] OOS [email or web address] Care Teams Band Splicer Relationship Specialty Start Date End Date Sylvia Colbert PA [address] [place] [address] PCP - General Physician Customer Success Manager 09/07/24 Santo Jimenes MD [address] [place] [address] Consulting Physician Rheumatology 09/07/24
--- OUTSIDE RECORDS SUMMARY | 2025-04-11 11:06 | XMS_ITS | Clinical Summary ---
Author Organization [facility] Address [address] [place] [address] Phone Care Team Providers Care Amusement Park Entertainer Name Role Phone Santo Jimenes MD Unavailable [phone] Sylvia Colbert Primary Care Pr ovider Allergies No known active allergies Medications No known medications Active Problems Problem Noted Date Diagnosed Date Abnormal laboratory test result 10/26/2024 Assessment & Plan (11/09/2024 11:17 AM PLASTIC SURGERY ASSISTANT): 24yoF presents for evaluation due to concern [...] warrant. Assessment & Plan (10/26/2024 3:39 PM PLASTIC SURGERY ASSISTANT): 24yoF presents for evaluation due to concern [...] 10/26/2024 Assessment & Plan (10/26/2024 3:40 PM PLASTIC SURGERY ASSISTANT): Request XR reports. Continue with PT as [...] Comments Blood Pressure 110/82 11/09/2024 11:06 AM PLASTIC SURGERY ASSISTANT Pulse 71 11/09/2024 11:06 AM PLASTIC SURGERY ASSISTANT Temperature - - Respiratory Rate - - Oxygen Saturation 99% 11/09/2024 11:06 AM PLASTIC SURGERY ASSISTANT Inhaled Oxygen Concentration - - Weight 65.3 kg (144 lb) 11/09/2024 11:06 AM PLASTIC SURGERY ASSISTANT Height 165.1 cm (5' 5) 11/09/2024 11:06 AM PLASTIC SURGERY ASSISTANT Body Mass Index 23.96 11/09/2024 11:06 AM PLASTIC SURGERY ASSISTANT Plan of Treatment Health Maintenance Due Date [...] patient's age to complete this topic Insurance [employer] OOS [employer] Care Teams Amusement Park Entertainer Relationship Specialty Start Date End Date Sylvia Colbert PA [address] [place] [address] PCP - General Physician General Laborer 09/07/24 Santo Jimenes MD [address] [place] [address] Consulting Physician Rheumatology 09/07/24
[2025-04-11 11:45] LABS: Hematocrit 45.9 % (37.0-47.0); Hemoglobin 15.3 g/dL (12.0-15.0); Immature Granulocyte Percent A 0.8 % (0-0.5); Lymphocytes Absolute Auto 2.03 K/mm3 (0.9-3.2); Mean Corpuscular HGB Conc 33.3 g/dl (32-36); Mean Corpuscular Hemoglobin 28.6 pg (26-34); Mean Corpuscular Volume 85.8 fl (80-100); Nucleated Red Blood Cells Absolute Auto 0.000 K/mm3 (0.0-0.012); Nucleated Red Blood Cells Perc 0.0 % (0.0-0.2); Platelet Count Result 206 k/mm3 (150-375); Red Blood Count 5.35 M/mm3 (4.2-5.4); White Blood Count 10.4 K/mm3 (4.5-10.0)
[2025-04-11 12:32] LABS: Beta HCG Quantitative 186650.00 mIU/ML; HIV 1/2 Ab P24 Ag Result Negative (Negative)
[2025-04-11 12:37] LABS: Syphilis IgG/IgM Antibody Non-Reactive (Nonreactive)
[2025-04-11 12:40] LABS: Hepatitis B Surface Antigen Negative (Negative)
[2025-04-12 09:08] LABS: Cytomegalovirus (CMV) Ab, IgG <0.60 U/mL (0.00-0.59); Cytomegalovirus (CMV) Ab, IgM <30.0 AU/mL (0.0-29.9)
[2025-04-12 14:08] LABS: Varicella-Zoster Ab, IgG Non Reactive (Non Reactive); Varicella-Zoster Ab, IgM <0.91 index (0.00-0.90)
== END 2025-04-11 11:00 | disposition home or self-care (01) ==
PROVIDERS: PCP Physician Assistant; Visit Provider Student in an Organized Health Care Education/Training Program
DX: N91.2 Amenorrhea, unspecified (principal)
CPT/HCPCS: 36415; 84702; 85025; 86593; 86644; 86645; 86703; 86762; 86787; 86850; 86900; 86901; 87086; 87340; G0432

== ENCOUNTER 2025-08-01 08:44 | Outpatient (CLI) | payer BC, SELFPAY ==
--- OUTSIDE RECORDS SUMMARY | 2025-08-01 09:03 | XMS_ITS | Clinical Summary ---
Author Organization [facility] Address [address] [place] [address] Phone Care Team Providers Care Industrial Hygienist Name Role Phone Santo Jimenes MD Unavailable [phone] Sylvia Colbert Primary Care Pr ovider Allergies No known active allergies Medications No known medications Active Problems Problem Noted Date Diagnosed Date Abnormal laboratory test result 10/26/2024 Assessment & Plan (11/09/2024 11:17 AM COFFEE URN ATTENDANT): 24yoF presents for evaluation due to concern [...] warrant. Assessment & Plan (10/26/2024 3:39 PM COFFEE URN ATTENDANT): 24yoF presents for evaluation due to concern [...] 10/26/2024 Assessment & Plan (10/26/2024 3:40 PM COFFEE URN ATTENDANT): Request XR reports. Continue with PT as [...] Comments Blood Pressure 110/82 11/09/2024 11:06 AM COFFEE URN ATTENDANT Pulse 71 11/09/2024 11:06 AM COFFEE URN ATTENDANT Temperature - - Respiratory Rate - - Oxygen Saturation 99% 11/09/2024 11:06 AM COFFEE URN ATTENDANT Inhaled Oxygen Concentration - - Weight 65.3 kg (144 lb) 11/09/2024 11:06 AM COFFEE URN ATTENDANT Height 165.1 cm (5' 5) 11/09/2024 11:06 AM COFFEE URN ATTENDANT Body Mass Index 23.96 11/09/2024 11:06 AM COFFEE URN ATTENDANT Plan of Treatment Health Maintenance Due Date Last Done Comments Cervical Cancer Screening 2000 Depression Screening 2000 Hepatitis C Screening 2000 DTaP/Tdap/Td Vaccine (1 - Tdap) 2011 Varicella Vaccines (1 of 2 - 13+ 2-dose series) 2013 HPV Vaccines (1 - 3-dose series) 2015 Hepatitis B Screening 2018 Regular Well Visit/Exam 18-64 2018 Influenza Vaccine (#1) 2025 Pneumococcal vaccine <65 Aged Out No longer eligible based on patient's age to complete this topic Insurance [employer] OOS [employer] Care Teams Industrial Hygienist Relationship Specialty Start Date End Date Sylvia Colbert PA [address] [place] [address] PCP - General Physician Senior Qa Tester 09/07/24 Santo Jimenes MD [address] [place] [address] Consulting Physician Rheumatology 09/07/24
[2025-08-01 10:06] LABS: Hematocrit 40.4 % (37.0-47.0); Hemoglobin 13.7 g/dL (12.0-15.0); Mean Corpuscular HGB Conc 33.9 g/dl (32-36); Mean Corpuscular Hemoglobin 29.8 pg (26-34); Mean Corpuscular Volume 88.0 fl (80-100); Platelet Count Result 149 k/mm3 (150-375); Red Blood Count 4.59 M/mm3 (4.2-5.4); White Blood Count 10.0 K/mm3 (4.5-10.0)
[2025-08-01 10:30] LABS: Glucose 1 Hour PP 50gm Dose 87 mg/dL
[2025-08-01 10:58] LABS: Syphilis IgG/IgM Antibody Non-Reactive (Nonreactive)
[2025-08-01 11:18] LABS: HIV 1/2 Ab P24 Ag Result Negative (Negative)
[2025-08-02] MEDS: RHO(D) IMMUNE GLOBULIN 300 MCG/2 ML SYRINGE IM (07:57)
== END 2025-08-01 08:45 | disposition home or self-care (01) ==
LOC: ANHLAB 08:45
PROVIDERS: PCP Physician Assistant; Visit Provider Student in an Organized Health Care Education/Training Program
DX: Z34.90 Encounter for supervision of normal pregnancy, unspecified, unspecified trimester (principal)
CPT/HCPCS: 36415; 82947; 85027; 85461; 86593; 86703; 86850; 86900; 86901; 90384; 96372; G0432; J2790